=== PATIENT | female | born 1990 | race Two or more races ===

== ENCOUNTER 2016-06-24 16:40 | Observation (INO) | payer MEDICAID, OTHER ==
[2016-06-24] MEDS ORDERED: PREN-153 OR (17:24)
== END 2016-06-24 17:32 | disposition home or self-care (01) | DRG 566 ==
LOC: LDRP 16:40
PROVIDERS: ADMIT Specialist; ATTEND Specialist
DX: O26.893 Other specified pregnancy related conditions, third trimester (principal); Z3A.32 32 weeks gestation of pregnancy
CPT/HCPCS: 59025; 81002; G0378

== ENCOUNTER 2016-08-01 11:05 | Inpatient (IN) | payer MEDICAID ==
[~2016-08-01] VITALS: Ht 157.5 cm; Wt 69.9 kg
[~2016-08-01 11:05] MED LIST: PREN-153 OR
[2016-08-01] MEDS ORDERED: LACTATED RINGER'S 1,000 ML IV ONE (11:58)
[2016-08-01] MEDS ORDERED: TERBUTALINE SULFATE 1 MG/ML 1ML VIAL SC SCH (12:00)
[2016-08-01] MEDS ORDERED: TERBUTALINE SULFATE 1 MG/ML 1ML VIAL SC ONE (12:03)
[2016-08-01] MEDS ORDERED: MAGNESIUM SULFATE 40MG/ML 1,000 ML IV SCH (18:31)
[2016-08-01] MEDS ORDERED: LACTATED RINGER'S 1,000 ML IV SCH (18:31)
[2016-08-01] MEDS ORDERED: MAGNESIUM SULFATE 40MG/ML 1,000 ML IV ONE (18:51)
[2016-08-01] MEDS ORDERED: BETAMETHASONE ACET (6MG/ML) 5ML VIAL IM ONE (19:45)
[2016-08-01 19:48] LABS: Basophils # (auto) 0 uL; Basophils % (auto) 0.3 % (0.0-2.0); Eosinophils # (auto) 0 uL; Eosinophils % (auto) 0.2 % (0.0-7.0); Hematocrit 35.8 % (36.0-46.0); Hemoglobin 12.5 g/dL (12.2-16.2); Lymphocytes # (auto) 2.1 uL; Lymphocytes % (auto) 18.4 % (10.0-50.0); Mean Corpuscular Hemoglobin 32.1 pg (28.0-32.0); Mean Corpuscular Volume 91.7 fL (80.0-100.0); Mean Platelet Volume 8.1 fL (7.4-10.4); Monocytes # (auto) 0.6 uL; Monocytes % (auto) 5.1 % (0.0-12.0); Neutrophils # (auto) 8.7 uL; Platelet Count (auto) 308 10^3/uL (140-450); Red Cell Distribution Width 13.3 % (11.6-16.0); White Blood Cell 11.4 10^3/uL (4.4-10.8)
[2016-08-01 20:15] LABS: Albumin 2.4 g/dL (3.4-5.0); BUN/Creatinine Ratio 11.5; Bilirubin, Total 0.3 mg/dL (0.2-1.0); Calcium 8.4 mg/dL (8.5-10.1); Partial Thromboplastin Time 25.7 sec (22.64-33.71); Potassium 3.7 mmol/L (3.5-5.1); Prothrombin Time 9.4 sec (9.37-12.3); Total Protein 6.1 g/dL (6.4-8.2); Uric Acid 4.1 mg/dL (2.6-6.0)
[2016-08-01 20:23] LABS: INR 0.86 (0.9-1.15)
[2016-08-01 21:48] LABS: Urine Bilirubin Negative (Negative); Urine Blood 1+ /uL (Negative); Urine Color Colorless (Yellow); Urine Glucose Normal (Normal); Urine Ketone TRACE (Negative); Urine Nitrite Negative (Negative); Urine RBC 6 /hpf (0 - 4); Urine Urobilinogen Normal (Negative); Urine pH 7.5 (5.0-8.0)
[2016-08-01] MEDS ORDERED: TETRACAINE 1% INJ 2 ML VIAL IJ ONE (22:09)
[2016-08-01] MEDS ORDERED: SUCCINYLCHOLINE CHLORIDE 20 MG/ML 10ML VIAL IV ONE (22:09)
[2016-08-01] MEDS ORDERED: fentaNYL CITRATE 100 MCG/2 ML VL ONE (22:10)
[2016-08-01] MEDS ORDERED: SODIUM CHLORIDE LOCK 10 ML ONE (22:10)
[2016-08-01] MEDS ORDERED: MIDAZOLAM HCL 1MG/1ML-2 ML VIAL ONE (22:10)
[2016-08-01] MEDS ORDERED: MORPHINE SULF(PF) 0.5MG/ML 10ML VIAL ONE (22:10)
[2016-08-01] MEDS ORDERED: ePHEDrine SULFATE 50 MG/ML AMP ONE (22:10)
[2016-08-01] MEDS ORDERED: ceFAZolin 1GM VL ONE (22:14)
[2016-08-01] MEDS ORDERED: OXYTOCIN 10 UNIT/ML 10ML VIAL ONE (22:14)
[2016-08-02] VITALS (11 sets, daily range): BP systolic 94–119; BP diastolic 47–80
[2016-08-02] MEDS ORDERED: METOCLOPRAMIDE HCL 5MG/ml INJ 2ml VIAL IV ONE (00:15)
[2016-08-02] MEDS ORDERED: NALOXONE HCL 0.4 MG/ML VIAL IV PRN (00:15)
[2016-08-02] MEDS ORDERED: diphenhdrAMINE HCL 50 MG/1 ML VL IV PRN (00:15)
[2016-08-02] MEDS ORDERED: HYDROmorphone HCL 2 MG/ML VL IV PRN ×2 (00:15)
[2016-08-02] MEDS ORDERED: KETOROLAC TROMETH 30 MG/ML 1ML VIAL IV ONE (00:15)
[2016-08-02] MEDS ORDERED: ONDANSETRON HCL 4 MG/2 ML VIAL IV PRN (00:15)
[2016-08-02] MEDS: ceFAZolin 1GM/50ML D5W 50 ML IV SCH ×3 (06:21→22:12)
[2016-08-02] MEDS: KETOROLAC TROMETH 30 MG/ML 1ML VIAL IV SCH ×2 (06:45→12:00)
[2016-08-02] MEDS: LACTATED RINGER'S 1,000 ML IV SCH ×2 (08:09→12:30)
[2016-08-02] MEDS ORDERED: LACTATED RINGER'S 1,000 ML IV SCH (14:19)
[2016-08-02] MEDS ORDERED: DOCUSATE SOD 100 MG CAP PO ONE (14:30)
[2016-08-02] MEDS ORDERED: BISACODYL 10 MG RECT SUPP PR PRN (14:30)
[2016-08-02] MEDS ORDERED: DOCUSATE CALCIUM 240 MG CAP PO ONE (14:30)
[2016-08-02] MEDS ORDERED: HYDROcodone-ACET 10/325MG TAB PO PRN (14:30)
[2016-08-02] MEDS: SIMETHICONE 80 MG CHEWABLE TABLET PO SCH ×2 (16:53→22:12)
[2016-08-02] MEDS: DOCUSATE SOD 100 MG CAP PO SCH (22:12)
[2016-08-03 04:00] VITALS: BP 106/55
[2016-08-03] MEDS: IBUPROFEN 800 MG TAB PO PRN ×2 (04:10→12:16)
[2016-08-03] MEDS: SIMETHICONE 80 MG CHEWABLE TABLET PO SCH ×3 (05:59→18:20)
[2016-08-03 08:00] VITALS: BP 99/54
[2016-08-03 08:00] LABS: Basophils # (auto) 0 uL; Basophils % (auto) 0.3 % (0.0-2.0); Eosinophils # (auto) 0 uL; Hemoglobin 11.7 g/dL (12.2-16.2); Lymphocytes # (auto) 1.9 uL; Lymphocytes % (auto) 18.4 % (10.0-50.0); Mean Corpuscular Hemoglobin 31.9 pg (28.0-32.0); Mean Corpuscular Hgb Conc. 34.3 g/dL (32.0-36.0); Mean Corpuscular Volume 93.1 fL (80.0-100.0); Monocytes # (auto) 0.7 uL; Monocytes % (auto) 6.7 % (0.0-12.0); Neutrophils # (auto) 7.7 uL; Neutrophils % (auto) 74.6 % (37.0-80.0); Platelet Count (auto) 291 10^3/uL (140-450); Red Cell Distribution Width 13.5 % (11.6-16.0); White Blood Cell 10.3 10^3/uL (4.4-10.8)
[2016-08-03] MEDS: DOCUSATE CALCIUM 240 MG CAP PO SCH (10:24)
[2016-08-03] MEDS: DOCUSATE SOD 100 MG CAP PO SCH ×2 (10:26→22:10)
[2016-08-03 12:15] VITALS: BP 93/58
[2016-08-03 15:30] VITALS: BP 93/51
[2016-08-03 19:15] VITALS: BP 114/68
[2016-08-03 23:00] VITALS: BP 111/62
[2016-08-04 03:30] VITALS: BP 91/58
[2016-08-04 08:00] VITALS: BP 109/56
[2016-08-04] MEDS: DOCUSATE CALCIUM 240 MG CAP PO SCH (10:00)
[2016-08-04] MEDS: DOCUSATE SOD 100 MG CAP PO SCH (10:00)
== END 2016-08-04 11:20 | disposition home or self-care (01) | DRG 540 ==
LOC: OBSVTOIN 11:05 → LDRP 11:05
PROVIDERS: ADMIT Specialist; ATTEND Specialist
PROC: 10D00Z1 Extraction of Products of Conception, Low, Open Approach (ICD-10-PCS; principal; 2016-08-01 22:54)
DX: O34.211 Maternal care for low transverse scar from previous cesarean delivery (principal); K66.0 Peritoneal adhesions (postprocedural) (postinfection); O99.62 Diseases of the digestive system complicating childbirth; Z37.0 Single live birth; Z3A.37 37 weeks gestation of pregnancy
CPT/HCPCS: 36415; 51702; 59025; 80053; 81001; 81002; 83735; 84550; 85025; 85610; 85730; 86850; 86900; 86901; 96361; 96365; 96366; 96372; G0378; J0330; J0690; J1885; J2250; J2590

== ENCOUNTER 2021-08-31 16:32 | Observation (INO) | payer MEDICAID ==
[~2021-08-31] VITALS: Ht 154.9 cm; Wt 70.3 kg
[~2021-08-31 16:32] MED LIST changes: -PREN-153 OR; +PREN1TAB71 OR
[2021-08-31] MEDS ORDERED: BETAMETHASONE ACET (30mg/5ml) 5ml Vial 6mg/ml IM ONE (17:45)
[2021-08-31] MEDS ORDERED: TERBUTALINE SULFATE 1 MG/ML 1ML VIAL SC ONE (17:45)
[2021-09-01] MEDS ORDERED: NIFE10CA3 PO (20:01)
== END 2021-08-31 19:10 | disposition home or self-care (01) ==
LOC: LDRP 16:32
PROVIDERS: ADMIT Obstetrics & Gynecology; ATTEND Obstetrics & Gynecology
DX: O62.9 Abnormality of forces of labor, unspecified (principal); O26.893 Other specified pregnancy related conditions, third trimester; R10.2 Pelvic and perineal pain; Z3A.33 33 weeks gestation of pregnancy; Z98.891 History of uterine scar from previous surgery
CPT/HCPCS: 59025; 76815; 81002; 94760; 96372; G0378; J0702; J3105

== ENCOUNTER 2021-09-01 18:34 | Observation (INO) | payer MEDICAID ==
[2021-09-01] MEDS ORDERED: BETAMETHASONE ACET (30mg/5ml) 5ml Vial 6mg/ml IM ONE (18:45)
[2021-09-01] MEDS ORDERED: NIFE10CA3 PO (20:01)
== END 2021-09-01 20:05 | disposition home or self-care (01) ==
LOC: LDRP 18:34
PROVIDERS: ADMIT Obstetrics & Gynecology; ATTEND Obstetrics & Gynecology
DX: O60.03 Preterm labor without delivery, third trimester (principal); O62.9 Abnormality of forces of labor, unspecified; O26.893 Other specified pregnancy related conditions, third trimester; R10.2 Pelvic and perineal pain; Z3A.33 33 weeks gestation of pregnancy
CPT/HCPCS: 59025; 81002; 96372; G0378

== ENCOUNTER 2021-09-30 07:52 | Observation (INO) | payer MEDICAID ==
[~2021-09-30] VITALS: Ht 154.9 cm; Wt 71.2 kg
[~2021-09-30 07:52] MED LIST changes: +NIFE10CA3 PO
[2021-09-30] MEDS ORDERED: TERBUTALINE SULFATE 1 MG/ML 1ML VIAL SC SCH (13:00)
[2021-09-30] MEDS ORDERED: LACTATED RINGER'S 1,000 ML IV ONE (13:00)
[2021-10-04] MEDS ORDERED: IBU600T PO (06:16)
[2021-10-04] MEDS ORDERED: HYDR-4902 PO (06:16)
[2021-10-04] MEDS ORDERED: DOCU100C10 PO (06:16)
== END 2021-09-30 16:25 | disposition home or self-care (01) ==
LOC: UNDOADMOB 11:02 → LDRP 11:02
PROVIDERS: ADMIT Obstetrics & Gynecology; ATTEND Obstetrics & Gynecology
DX: O26.893 Other specified pregnancy related conditions, third trimester (principal); R10.9 Unspecified abdominal pain; O36.5930 Maternal care for other known or suspected poor fetal growth, third trimester, not applicable or unspecified; Z3A.37 37 weeks gestation of pregnancy; Z91.040 Latex allergy status
CPT/HCPCS: 59025; 76818; 81002; 94760; 96360; 96361; 96372; G0378; J3105

== ENCOUNTER 2021-10-01 09:20 | Observation (INO) | payer MEDICAID ==
[2021-10-04] MEDS ORDERED: IBU600T PO (06:16)
[2021-10-04] MEDS ORDERED: HYDR-4902 PO (06:16)
[2021-10-04] MEDS ORDERED: DOCU100C10 PO (06:16)
== END 2021-10-01 11:39 | disposition home or self-care (01) ==
LOC: LDRP 09:20
PROVIDERS: ADMIT Obstetrics & Gynecology; ATTEND Obstetrics & Gynecology
DX: O36.5930 Maternal care for other known or suspected poor fetal growth, third trimester, not applicable or unspecified (principal); O62.9 Abnormality of forces of labor, unspecified; O60.03 Preterm labor without delivery, third trimester; O26.893 Other specified pregnancy related conditions, third trimester; N89.8 Other specified noninflammatory disorders of vagina; Z3A.37 37 weeks gestation of pregnancy; Z98.891 History of uterine scar from previous surgery
CPT/HCPCS: 59025; 76818; 81002; 94760; G0378